=== PATIENT | female | born 1975 | race Caucasian/White ===

== ENCOUNTER 2017-04-13 00:49 | Emergency (ER) | payer SELFPAY ==
[2017-04-13 00:56] VITALS: BMI 37.2
--- NOTE | 2017-04-13 01:16 | DR.GENAD ---
HPI - PCP Primary Care Physician: [facility] - Complaint/Symptoms Chief Complaint:: EPIGASTRIC PAIN, NAUSEA UNTIL SHE VOMITTED. JUST FEELS WEAK. Self Treatment fo Chief Complaint: ASPIRIN 325MG PO EARLIER TODAY - Nurses notes reviewed Nurses Notes Review: Yes - Source History Provided: Patient - Mode of Arrival Mode of Arrival: Ambulatory - Timing Onset of Chief Complaint: 04/13/17 Came on: Gradually - Duration Duration: Intermittent Duration: Hours - Location Location: epigastric PMH - PMH Past Medical History: Yes Past Medical History: Migraines, Headaches Past Surgical History: Yes Surgical History: Cholecystectomy Past Surgical History Comment: EAR TUBES. HERNIA REPAIR - Family History History of Family Medical Conditions: Yes Family Medical History: Diabetes Mellitus, [place], Coronary Artery Disease, Hypertension - Social History Does patient currently use any type of tobacco product: No Have you used tobacco products in the last 12 months: No Type of Tobacco Use: None Does any household member use tobacco: No Alcohol Use: None Do you use any recreational Drugs:: No Lives With: Spouse Lives Where: Home - infectious screening Have you traveled outside the country in the last 6 months?: No Isolation: Standard PE - Vital Signs Vitals: Temperature 97.7 F Pulse Rate 70 Respiratory Rate 16 Blood Pressure [Right Arm] 142/78 Blood Pressure 197/94 O2 Sat by Pulse Oximetry 100 Course - Treatment Treatment: Pain persist in epigastric area but is better. ROR - Labs Reviewed Result Diagrams: 04/13/17 01:25 04/13/17 01:25 Laboratory: WBC 11.3 X10^3/uL (3.6-10.0) H 04/13/17 01:25 RBC 4.18 X10^6/uL (3.5-5.4) 04/13/17 01:25 Hgb 13.1 g/dL (12.0-16.0) 04/13/17 01:25 Hct 39.3 % (36.0-47.0) 04/13/17 01:25 MCV 94.1 fL (80.0-100.0) 04/13/17 01:25 MCH 31.4 pg (27.0-34.0) 04/13/17 01:25 MCHC 33.4 g/dL (33.0-35.0) 04/13/17 01:25 RDW 13.0 % (11.6-16.5) 04/13/17 01:25 Plt Count 295 X10^3/uL (150.0-450.0) 04/13/17 01:25 MPV 8.7 fL (7.4-11.0) 04/13/17 01:25 Neut % 66.8 % (42.0-75.0) 04/13/17 01:25 Lymph % 23.3 % (21.0-51.0) 04/13/17 01:25 [place] % 6.9 % (0.0-13.0) 04/13/17 01:25 Eos % 1.8 % (0.9-2.9) 04/13/17 01:25 Baso % 1.2 % (0.2-1.0) H 04/13/17 01:25 Neut # 7.6 x10^3/uL (2.2-4.8) H 04/13/17 01:25 Lymph # 2.6 X10^3/uL (1.3-2.9) 04/13/17 01:25 [place] # 0.8 x10^3/uL (0.3-0.8) 04/13/17 01:25 Eos # 0.2 x10^3/uL (0.0-0.2) 04/13/17 01:25 Baso # 0.1 X10^3/uL (0.0-0.1) 04/13/17 01:25 Absolute Nucleated RBC 0.0 /100WBC 04/13/17 01:25 Sodium 140 mmol/L (136-145) 04/13/17 01:25 Corrected Sodium 140 mmol/L (136-145) 04/13/17 01:25 Potassium 3.5 mmol/L (3.5-5.1) 04/13/17 01:25 Chloride 103 mmol/L (98-107) 04/13/17 01:25 Carbon Dioxide 30.3 mmol/L (21-32) 04/13/17 01:25 BUN 11 mg/dL (7-18) 04/13/17 01:25 Creatinine 0.86 mg/dL (0.55-1.02) 04/13/17 01:25 Est GFR (MDRD) Af Amer > 60 (>60) 04/13/17 01:25 Est GFR (MDRD) Non-Af > 60 (>60) 04/13/17 01:25 Glucose 120 mg/dL (65-99) H 04/13/17 01:25 Calcium 8.4 mg/dL (8.5-10.1) L 04/13/17 01:25 Corrected Calcium TNP 04/13/17 01:25 Total Bilirubin 0.30 mg/dL (0.2-1.0) 04/13/17 01:25 AST 14 Units/L (15-37) L 04/13/17 01:25 ALT 24 Units/L (12-78) 04/13/17 01:25 Alkaline Phosphatase 70 Units/L (46-116) 04/13/17 01:25 Total Protein 7.6 g/dL (6.4-8.2) 04/13/17 01:25 Albumin 3.4 g/dL (3.4-5.0) 04/13/17 01:25 Globulin 4.2 g/dL (2.5-4.5) 04/13/17 01:25 Albumin/Globulin Ratio 0.8 Ratio (1.1-2.1) L 04/13/17 01:25 Lipase 101 Units/L (73-393) 04/13/17 01:25 - Diagnosis Discharge Problem: Gastritis Qualifiers: Gastritis type: unspecified gastritis Chronicity: acute Gastritis bleeding: without bleeding Qualified Code(s): K29.00 - Acute gastritis without bleeding Hypertension Qualifiers: Hypertension type: essential hypertension Qualified Code(s): I10 - Essential ( primary) hypertension - Discharge Plan Condition: Stable Prescriptions: Famotidine/Ca Carb/Mag Hydrox [Pepcid Complete Tablet Chew] 1 each PO BID 5 Days Ondansetron [Zofran Odt] 4 mg PO Q8H PRN #12 tab PRN Reason: Nausea/Vomiting - Follow ups/Referrals Follow ups/Referrals: NFD,None [Primary Care Provider] - 3 days - Instructions
[2017-04-13] MEDS ORDERED: ZOFRAN TAB 4 MG PO ONE (01:19)
[2017-04-13] MEDS ORDERED: ZOFRAN TAB 4 MG ONE (01:21)
[2017-04-13] MEDS ORDERED: CATAPRES TAB 0.2 MG ONE (01:29)
[2017-04-13] MEDS ORDERED: CATAPRES TAB 0.2 MG PO ONE (01:31)
[2017-04-13 01:38] LABS: BASOPHILS # (AUTO) 0.1 X10^3/uL (0.0-0.1); BASOPHILS % (AUTO) 1.2 % (0.2-1.0); EOSINOPHILS # (AUTO) 0.2 x10^3/uL (0.0-0.2); EOSINOPHILS % (AUTO) 1.8 % (0.9-2.9); HEMATOCRIT 39.3 % (36.0-47.0); HEMOGLOBIN 13.1 g/dL (12.0-16.0); LYMPHOCYTES # (AUTO) 2.6 X10^3/uL (1.3-2.9); LYMPHOCYTES % (AUTO) 23.3 % (21.0-51.0); MEAN CORPUSCULAR HEMOGLOBIN 31.4 pg (27.0-34.0); MEAN CORPUSCULAR HGB CONC 33.4 g/dL (33.0-35.0); MEAN CORPUSCULAR VOLUME 94.1 fL (80.0-100.0); MEAN PLATELET VOLUME 8.7 fL (7.4-11.0); MONOCYTES # (AUTO) 0.8 x10^3/uL (0.3-0.8); MONOCYTES % (AUTO) 6.9 % (0.0-13.0); NEUTROPHILS # (AUTO) 7.6 x10^3/uL (2.2-4.8); NEUTROPHILS % (AUTO) 66.8 % (42.0-75.0); PLATELET COUNT 295 X10^3/uL (150.0-450.0); RED BLOOD COUNT 4.18 X10^6/uL (3.5-5.4); WHITE BLOOD COUNT 11.3 X10^3/uL (3.6-10.0)
[2017-04-13 01:49] LABS: ALANINE AMINOTRANSFERASE 24 Units/L (12-78); ALBUMIN 3.4 g/dL (3.4-5.0); ALKALINE PHOSPHATASE 70 Units/L (46-116); ASPARTATE AMINO TRANSFERASE 14 Units/L (15-37); BLOOD UREA NITROGEN 11 mg/dL (7-18); CALCIUM 8.4 mg/dL (8.5-10.1); CARBON DIOXIDE 30.3 mmol/L (21-32); CHLORIDE 103 mmol/L (98-107); COR NA(FOR HYPERGLY) 140 mmol/L (136-145); CREATININE 0.86 mg/dL (0.55-1.02); GLUCOSE 120 mg/dL (65-99); SODIUM 140 mmol/L (136-145); TOTAL PROTEIN 7.6 g/dL (6.4-8.2); eGFR BLACK RACES > 60 (>60); eGFR NON BLACK RACES > 60 (>60)
[2017-04-13] MEDS ORDERED: LEVSIN/MAALOX/LIDOC VISC PO ONE (01:57)
[2017-04-13] MEDS ORDERED: LEVSIN/MAALOX/LIDOC VISC ONE (02:01)
[2017-04-13 02:32] VITALS: BP 142/78
[2017-04-13] MEDS ORDERED: NORCO 5/325 MG TAB PO ONE (02:34)
[2017-04-13] MEDS ORDERED: NORCO 5/325 MG TAB ONE (02:35)
== END 2017-04-13 03:01 | disposition home or self-care (01) ==
LOC: ER 00:49
DX: K29.00 Acute gastritis without bleeding (principal); I10 Essential (primary) hypertension
CPT/HCPCS: 36415; 80053; 83690; 85025; 99283; S0181